=== PATIENT | female | born 1940 | race Caucasian/White ===

== ENCOUNTER 2017-11-27 08:23 | Observation (INO) ==
--- NOTE | 2017-11-21 16:26 | MH ---
cc: Bryson Wills MD DATE OF ADMISSION: 11/27/2017 DATE OF ADMISSION: 11/27/2017 ADMITTING DIAGNOSIS: Osteoarthritic degeneration, left knee. REASON FOR ADMISSION: Now being admitted for left total knee arthroplasty. HISTORY OF PRESENT ILLNESS: This is pleasant 77-year-old female is being admitted today for a left total knee arthroplasty due to severe painful osteoarthritic degeneration of the left knee. OTHER PAST HISTORY: The patient has a history of asthma, hypertension and arthritis and osteoporosis, for which she takes: MEDICATIONS: Alendronate 70, , gabapentin, Lasix, Levothyroxine, Mobic, omeprazole, telmisartan. PAST SURGICAL HISTORY: Rotator cuff repair. REVIEW OF SYSTEMS: Noncontributory. FAMILY HISTORY: Noncontributory. SOCIAL HISTORY: She does not smoke, does not drink. ALLERGIES: ALLERGIC TO SULFA ANTIBIOTICS. PHYSICAL EXAMINATION: GENERAL: We find a 77-year-old female, well-developed, well-nourished, well oriented x 3, complaining of pain in the left knee. VITAL SIGNS: Blood pressure 132/80, pulse 83 and regular, respirations 18, temperature 97.9, pulse oximetry 96 percent on room air. HEENT: Eyes PERRLA, EOMI. Ears, nose, mouth clear. NECK: Supple. LUNGS: Clear. HEART: Regular rate. ABDOMEN: Soft. Positive bowel sounds, nontender. EXTREMITIES: Reveal left knee had crepitance on range of motion from -5 short of full extension, 90 degrees of flexion. She is neurovascularly intact to her toes. IMPRESSION AT THIS TIME: Severe painful osteoarthritic degeneration, left knee. PLAN: Admission for left total knee arthroplasty today. The patient is given a prescription for postoperative pain and anticoagulation control in the office. MD HUSSEIN Canas/PAMELLA , 04:08 PM , 04:24 PM
[2017-11-27] MEDS ORDERED: Bupivacaine Liposomal PF 1.3% Inj 20 ML Vial ONE (09:12)
[2017-11-27] MEDS ORDERED: Dexamethasone Inj 20 MG/5 ML Vial IV.SIG SCH (09:30)
[2017-11-27] MEDS ORDERED: Metoprolol Tartrate 25 MG Tablet PO SCH (09:30)
[2017-11-27] MEDS ORDERED: ceFAZolin 2 GM Premix Inj 2 GM/50 ML PIGGYBACK IV.SIG SCH (09:30)
[2017-11-27] MEDS ORDERED: Vancomycin Inj 1 GM/200 ML PIGGYBACK IV.SIG SCH (09:30)
[2017-11-27] MEDS ORDERED: Chlorhexidine Gluconate 2% 1 Pack (2 Cloths) TOPICAL SCH (09:30)
[2017-11-27] MEDS ORDERED: Chlorhexidine 4% Topical 120 APPLIC/120 ML Bottle TOPICAL SCH (09:30)
[2017-11-27] MEDS ORDERED: Sodium Chlor 0.9% Inj 500 ML IV.SIG SCH (10:00)
[2017-11-27] MEDS ORDERED: Morphine Inj 4 MG/ML Vial IV.PUSH PRN (10:57)
[2017-11-27] MEDS ORDERED: Tranexamic Acid Inj 1,000 MG in Sodium Chlor 0.9% Inj 100 ML IV.SIG ONE (10:57)
[2017-11-27] MEDS ORDERED: Bisacodyl 10 MG Supp RECTAL PRN (10:57)
[2017-11-27] MEDS ORDERED: Post-op Orders (for Pharmacy) OTHER STA (10:57)
[2017-11-27] MEDS ORDERED: TRANEXAMIC ACID IV.SIG SCH ×2 (11:00→14:00)
[2017-11-27] MEDS ORDERED: SODIUM CHLOR 0.9% IV.SIG SCH ×2 (11:00→14:00)
[2017-11-27] MEDS ORDERED: Sodium Chlor 0.9% Inj 80 ML, Bupivacaine Liposo PF 1.3% Inj 20 ML, Bupivacaine PF 0.25%... P-ARTICULR SCH ×3 (11:00)
[2017-11-27] MEDS ORDERED: Bupivacaine/Dextrose 0.75% Inj 2 ML Ampul ONE (11:10)
--- NOTE | 2017-11-27 11:55 | P.DCO ---
- Physical Therapy Order: Evaluate and treat, Improve ambulation, Strength and gait training - Home Health Nursing Order: Nursing assessment with vital signs - Case Management Consult Yes - Certification I have seen patient May Fernandes on 11/27/17. My clinical findings support the need for the requested home health care services because: High risk of falls I certify that my clinical findings support that this patient is homebound because: Post-op weakness, Unsteady gait/balance
[2017-11-27] MEDS ORDERED: Esmolol Bolus Inj 100 MG/10 ML Vial IV.PUSH ONE (12:00)
[2017-11-27] MEDS ORDERED: Phenylephrine/NS 1000 MCG/10ML Syringe IV.PUSH ONE (12:00)
[2017-11-27] MEDS ORDERED: Neostigmine Inj 5 MG/5 ML Syringe IV.PUSH ONE (12:00)
[2017-11-27] MEDS ORDERED: Lidocaine PF 1% Inj 5 ML Syringe INFILTRATN ONE (12:00)
[2017-11-27] MEDS ORDERED: Glycopyrrolate Inj 1 MG/5 ML Syringe IV.PUSH ONE (12:00)
[2017-11-27] MEDS ORDERED: Ketorolac Inj 30 MG/ML (IVP) Vial IV.PUSH ONE (12:00)
[2017-11-27] MEDS ORDERED: Labetalol HCl Inj 100 MG/20 ML Vial IV.PUSH ONE (12:00)
--- NOTE | 2017-11-27 14:28 | MP ---
cc: Bryson Wills MD DATE OF OPERATION: 11/27/2017 DATE OF SURGERY: 11/27/2017. PREOPERATIVE DIAGNOSIS: Osteoarthritic degeneration, left knee. POSTOPERATIVE DIAGNOSIS: Osteoarthritic degeneration, left knee. PROCEDURE PERFORMED: Left total knee arthroplasty using Consensus components, size 3 femur, 1 tibia, 12 standard insert and size 1 patella, 2 batches of DePuy cement. SURGEON: Bryson Wills MD INTERNET SALES REPRESENTATIVE: MILAD Salamanca ANESTHESIA: General intubation and block. PROCEDURE: After successful induction of anesthesia, the patient is placed on the operating room table in the supine position. The knee is prepped and draped in the usual manner. A tourniquet is inflated at the upper thigh and set to 300 mmHg pressure after exsanguination of the lower extremity. A longitudinal incision is made extending from 3 inches proximal to the superior pole of the patella, across the patella in longitudinal fashion, and down past the insertion of the tibial tubercle into the proximal tibia. The incision is carried down through subcutaneous tissue along the medial aspect of the patella and retinaculum, down through the capsule to expose the knee joint. The patella and patellar tendon are freed up enough to allow the patella to be inverted and retracted off the lateral side of the knee joint. The knee joint is left exposed. Small osteophytes are removed. All soft tissue is removed to allow proper position of the femoral and tibial cutting jig guide. The first femoral jig is then inserted along the distal end of the femur after first measuring to decide whether this is a small, medium, or large component. The notch is then drilled and the tibial cutting guide inserted into the femoral cutting guide, along with the ankle brace to allow for proper measurement of the tibial cutting surface that needed to be resected. Pins are inserted into the tibial cutting jig and femoral cutting jig to hold them in place. An oscillating saw is then used to resect the surface of the tibia. The surface of the tibia is then completely removed using sharp and blunt dissection. The anterior and posterior cuts of the femur are then made as well using an oscillating saw through the cutting guide. All guides are then removed and the varus/valgus angulation cutting guide applied to the femur for proper measurement of the proper amount of valgus. The anterior cutting guide for the femur is then inserted at the anterior femoral cuts made. Next, the first block trial is inserted into the femur to allow for proper condyle drill holes to be made which are then made followed by removal of the bone between the condyles using an oscillating saw as well as the bone removed at the most posterior surface of the condyle. After this, this guide is removed and the chamfer cuts made using the chamfer cutting guide from both anterior and posterior. Next, the femoral trial is then inserted, the tibial surface reflected anterior to expose the tibial surface and a tibial stem guide is inserted after first measuring for a standard, standard plus, large, or large plus surface to be used. After the stem is impacted the trial tibial surface is applied followed by the trial meniscal components. After full range of motion is found with the appropriate length meniscal components varying the patella is prepared by resecting the posterior aspect of the patella using an oscillating saw, inserting a trial. The trial is then removed and the cruciate cutting guide applied using the bur to cut the cruciate cuts. After cruciate cuts are made all trials are removed. The wound is irrigated copiously with antibiotic solution and Water Pik and the actual components inserted into place using the aforementioned components, Consensus components, size 3 femur, 1 tibia, 12 standard insert and size 1 patella, 2 batches of DePuy cement. After the cement has hardened and the components are found to have full range of motion with no instability, the tourniquet is deflated, total tourniquet time being 52 minutes at 300 mmHg pressure. Meticulous hemostasis achieved and 120 cc of a mixture of Exparel, 0.25% Marcaine plain and normal saline injected around the knee for extra pain control. The wound again is irrigated copiously with antibiotic solution, meticulous hemostasis achieved. The deep fascia reapproximated with running #2 Quill, the subcutaneous tissue approximated using interrupted and running 2-0 and 4-0 Monocryl sutures, and Prineo dressing. DRAINS: No drain utilized. TOTAL TOURNIQUET TIME: 52 minutes at 300 mmHg pressure. ESTIMATED BLOOD LOSS: 200 mL COUNTS: Sponge count correct. CONDITION: The patient tolerated the procedure well and left the operating room in satisfactory condition. NOTE: MILAD Salamanca, was present during the entire procedure to include patient positioning and the procedure. The medical necessity of a nurse practitioner, miller first was indicated in this case due to the surgical complexity of the case itself. During the surgical case, the surgical scrub technologist was working the back table and my surgical orderly MILAD was directly assisting me. J. MD HUSSEIN Archibald/PAMELLA , 01:56 PM , 02:27 PM
[2017-11-27] MEDS ORDERED: fentaNYL Citrate Inj 100 MCG/2 ML Ampul ONE (14:44)
[2017-11-27] MEDS ORDERED: *Meperidine Inj 25 MG/ML Vial PERIprocedural Use ONLY ONE (15:04)
--- NOTE | 2017-11-27 15:12 | XR ---
EXAM DATE: 11/27/2017 3:00 PM EDT AGE/SEX: 77 years / Female INDICATIONS: Post op left knee surgery CLINICAL DATA: This is the patient's initial encounter. Patient reports that signs and symptoms have been present for 1 day and indicates a pain score of Nonresponsive. MEDICAL/SURGICAL HISTORY: None. None. COMPARISON: No prior exams available for comparison. FINDINGS: The patient is status post left total knee replacement with prosthesis in good position. No acute fra cture or dislocation is noted. CONCLUSION: There is post left total knee arthroplasty with prosthesis in good position. Electronically signed by: Esteban Cox MD 11/27/2017 3:11 PM EDT
[2017-11-27] MEDS ORDERED: Montelukast 10 MG Tablet PO SCH (18:00)
--- NOTE | 2017-11-27 18:10 | P.BOP ---
- Preoperative Diagnosis (1) Osteoarthritis of left knee - Postoperative Diagnosis (1) Osteoarthritis of left knee Date of procedure: 11/27/17 Procedure: Left Total Knee Arthroplasty Implants: see implant log Anesthesia: SHRUTHIA Surgeon: Bryson Wills MD Sprayer Machine: Daniella Camejo Estimated blood loss (mL): 200 Tourniquet time (min): 65 Urine output (mL): 0 (no aguilera) Pathology: none sent Condition: stable Disposition: same day
[2017-11-27] MEDS: Gabapentin 100 MG Capsule PO SCH (22:53)
[2017-11-27] MEDS: Senna/Docusate Sodium 8.6/50 MG Tablet PO SCH (22:53)
[2017-11-27] MEDS: Multivitamin/Minerals Therapeutic Tablet PO SCH (22:53)
[2017-11-28 05:58] LABS: Hematocrit 34.4 % (35.0-46.0); Hemoglobin 11.1 gm/dL (11.6-15.3)
[2017-11-28] MEDS ORDERED: KRILL OM DHA EPA PHOSPHO AST PO SCH (09:00)
[2017-11-28] MEDS ORDERED: [UNRECOGNIZED DRUG - OTHER] PO SCH (09:00)
[2017-11-28] MEDS ORDERED: MV MN FA VIT K LYCOP LUT COQ10 PO SCH (09:00)
[2017-11-28] MEDS ORDERED: POTASSIUM CHLORIDE PO SCH (09:00)
[2017-11-28] MEDS: Senna/Docusate Sodium 8.6/50 MG Tablet PO SCH ×2 (09:46→22:44)
[2017-11-28] MEDS: Pantoprazole Sodium 20 MG DR Tablet PO SCH (09:51)
[2017-11-28] MEDS: Multivitamin/Minerals Therapeutic Tablet PO SCH ×2 (09:52→22:44)
[2017-11-28] MEDS: Calcium Carbonate 500 MG Tablet PO SCH ×3 (09:52→18:19)
[2017-11-28] MEDS ORDERED: Magnesium Oxide 400 MG Tablet PO SCH (11:00)
--- NOTE | 2017-11-28 11:11 | P.PNOP ---
Subjective Interval history: Patient comfortable at present time. Physical Exam Vital signs: Vital Signs 11/27/17 14:31 11/27/17 14:44 11/27/17 15:00 Temperature 97.9 F 97.9 F Pulse Rate 48 L 62 62 Respiratory Rate 16 16 16 Blood Pressure 133/62 139/57 L 141/64 H Pulse Oximetry 99 11/27/17 15:15 11/27/17 15:30 11/27/17 17:30 Temperature Pulse Rate 62 59 L 60 Respiratory Rate 16 16 16 Blood Pressure 148/65 H 141/62 H 152/72 H Pulse Oximetry 99 99 99 11/27/17 18:30 11/27/17 19:15 11/27/17 20:00 Temperature 97.9 F 97.6 F Pulse Rate 55 L 55 L 64 Respiratory Rate 16 16 16 Blood Pressure 162/70 H 162/70 H 148/67 H Pulse Oximetry 98 11/27/17 20:20 11/28/17 00:00 11/28/17 04:00 Temperature 97.8 F 98 F Pulse Rate 74 84 Respiratory Rate 18 16 16 Blood Pressure 159/69 H 151/61 H Pulse Oximetry 96 94 L 11/28/17 08:00 Temperature 97.8 F Pulse Rate 73 Respiratory Rate 18 Blood Pressure 149/67 H Pulse Oximetry 97 Intake & Output 11/27/17 11/28/17 11/28/17 18:59 06:59 18:59 Intake Total 1256.33 / 1256.33 1680 / 1680 Output Total 200 / 200 550 / 550 Balance 1056.33 / 1056.33 1130 / 1130 Weight 63.3 kg 60.9 kg Intake: IV 356.33 / 356.33 1200 / 1200 LR 1000 mL Inj 1,000 ML @ 80 1000 / 1000 mls/hr IV.CONT .[id number] KARL Rx# :[id number] Cyklokapron Inj 633 MG In NS 106.33 / 106.33 Inj 100 ML @ 200 mls/hr IV.SIG ONCE KARL Rx#:[id number] Vancomycin Inj 1 gm In 200 ml @ 200 / 200 200 mls/hr IV.SIG DIRECTOR BIOSTATISTICS KARL Rx#:[id number] Ancef 2 GM Premix Inj 2 gm In 50 / 50 50 ml @ 100 mls/hr IV.SIG DIRECTOR BIOSTATISTICS KARL Rx#:[id number] Ancef Inj 1,000 MG In NS Inj 200 / 200 100 ML @ 200 mls/hr IV.SIG Q6H KARL Rx#:[id number] Oral 480 / 480 Anesthesia Amount 900 / 900 Output: Urine 550 / 550 Estimated Blood Loss 200 / 200 Other: # Voids 1 Date of Last Bowel Movement 11/26/17 # Bowel Movements 0 Weight On Admission 63.3 kg Results - Labs CBC & Chem 7: 11/28/17 05:21 Laboratory Results - last 24 hr 11/28/17 05:21 Hgb 11.1 L Hct 34.4 L - Imaging Impressions Knee X-Ray 11/27/17 10:57 CONCLUSION: There is post left total knee arthroplasty with prosthesis in good position. Assessment and Plan - Problem List (1) Status post total left knee replacement using cement Code(s): Z96.652 - Presence of left artificial knee joint Status: Acute - Attending Attestation Attending Attestation: Dressing dry and intact. Sitting up in chair. No calf tenderness. She is slightly confused. Plan is for the patient to continue with physical therapy today and assess her mental status tomorrow. She may need to go to shelter facility.
[2017-11-28] MEDS: Gabapentin 100 MG Capsule PO SCH (22:44)
[2017-11-29] MEDS: Senna/Docusate Sodium 8.6/50 MG Tablet PO SCH (09:03)
[2017-11-29] MEDS: Pantoprazole Sodium 20 MG DR Tablet PO SCH (09:03)
[2017-11-29] MEDS: Multivitamin/Minerals Therapeutic Tablet PO SCH (09:03)
[2017-11-29 09:47] LABS: Hematocrit 34.5 % (35.0-46.0); Hemoglobin 11.6 gm/dL (11.6-15.3)
[2017-11-29] MEDS: Calcium Carbonate 500 MG Tablet PO SCH ×2 (11:03→12:53)
[2017-11-29 11:09] LABS: Bilirubin,Urine Negative (Negative); Clarity,Urine Clear (Clear); Color,Urine Yellow (Yellw/Straw); Glucose,Urine (UA) Negative (Negative); Leukocyte Esterase,Urine Negative (Negative); Mucus,Urine Few /lpf (Occasional); Nitrite,Urine Negative (Negative); Specific Gravity,Urine 1.006 (1.002-1.035); Squamous Epithelial Cell,Urine <1 /hpf (0-5)
--- NOTE | 2017-11-29 12:12 | P.PNOP ---
Subjective Interval history: the patient is basically comfortable today. Physical Exam Vital signs: Vital Signs 11/28/17 16:00 11/28/17 20:00 11/29/17 00:00 Temperature 97.8 F 98 F 98.2 F Pulse Rate 73 88 74 Respiratory Rate 18 18 18 Blood Pressure 125/71 128/70 129/65 Pulse Oximetry 97 98 97 11/29/17 04:00 11/29/17 08:00 Temperature 99.1 F 98.0 F Pulse Rate 88 87 Respiratory Rate 18 18 Blood Pressure 167/68 H 151/67 H Pulse Oximetry 97 98 Intake & Output 11/28/17 11/29/17 11/29/17 18:59 06:59 18:59 Intake Total 2380 / 2380 360 / 360 Output Total 300 / 300 Balance 2080 / 2080 360 / 360 Weight 75.6 kg Intake: IV 1000 / 1000 LR 1000 mL Inj 1,000 ML @ 80 1000 / 1000 mls/hr IV.CONT .[id number] KARL Rx# :[id number] Oral 480 / 480 360 / 360 Anesthesia Amount 900 / 900 Output: Urine 300 / 300 Other: # Voids 1 3 Date of Last Bowel Movement 11/26/17 11/26/17 # Bowel Movements 0 - Constitutional no acute distress Results - Labs CBC & Chem 7: 11/29/17 08:59 Laboratory Results - last 24 hr 11/28/17 11/29/17 08:40 08:59 Hgb 11.6 Hct 34.5 L Urine Color Yellow Urine Clarity Clear Urine pH 6.0 Ur Specific [place] 1.006 Urine Protein Negative Urine Glucose (UA) Negative Urine Ketones Trace H Urine Occult Blood Moderate H Urine Nitrate Negative Urine Bilirubin Negative Urine Urobilinogen Less than 2 Ur Leukocyte Esterase Negative Urine RBC 6 H Urine WBC 1 Ur Squamous Epith Cells <1 Urine Mucus Few H Micro UA Comment Culture not ind Urine Culture Comments Culture not ind Assessment and Plan - Problem List (1) Status post total left knee replacement using cement Code(s): Z96.652 - Presence of left artificial knee joint Status: Acute - Attending Attestation Attending Attestation: the left knee wound is healing well no sign of inflammation or infection. She has no calf tenderness. She is neurovascularly intact her toes. Plan is for the patient to continue therapy today and when bed becomes available she will be transferred to the halfway facility. For continuation of care.
[2017-11-29 13:30] VITALS: BP 134/58; PULSE 95; RESP 17; TEMP 98.4; O2SAT 96
--- NOTE | 2017-11-30 10:38 | P.DS ---
Date of admission: 11/27/17 10:57 Primary care physician: MD Bryson Rios MD Attending physician on discharge: Tanmay Wills Anticipated date of discharge: 11/29/17 Brief History from admission: Patient underwent a left total knee arthroplasty on day of admission. She received a course of prophylactic IV antibiotics and within 23 hours started on anticoagulation therapy. She continued to improve tolerating food and fluids well. She tolerated physical therapy and was discharged to care home facility on postoperative day 3 in good condition for continuation of care. DS: Diagnosis - Discharge Diagnosis (1) Status post total left knee replacement using cement Status: Acute DS: Medications - Discharge Medications Prescriptions: hydrocodone-acetaminophen 1 tab PO Q4H PRN 15 Days #60 tab PRN Reason: Pain, Moderate DS: Summary Hospital Course: Patient was in the hospital total of 3 days. - Time Spent with Patient Total time spent providing and/or coordinating discharge services: - Quality: AMI Clinical Trial Participant: No - Quality: Stroke Reason for No Anticoagulant at DC: Treatment not indicated - Quality: VTE Deep Vein Thrombosis/Pulmonary Embolism Present on Admission: No Exam Vital signs: Vital Signs 11/29/17 12:00 Temperature 98.4 F Pulse Rate 95 H Respiratory Rate 17 Blood Pressure 134/58 L Pulse Oximetry 96 Results Procedures completed during hospitalization: Left total knee Completed studies during hospitalization: Labs and x-ray Labs on day of discharge: Labs from last 24 hours 11/28/17 08:40 Urine Color Yellow Urine Clarity Clear Urine pH 6.0 Ur Specific [place] 1.006 Urine Protein Negative Urine Glucose (UA) Negative Urine Ketones Trace H Urine Occult Blood Moderate H Urine Nitrate Negative Urine Bilirubin Negative Urine Urobilinogen Less than 2 Ur Leukocyte Esterase Negative Urine RBC 6 H Urine WBC 1 Ur Squamous Epith Cells <1 Urine Mucus Few H Micro UA Comment Culture not ind Urine Culture Comments Culture not ind - Impressions ITS Impressions Knee X-Ray 11/27/17 10:57 CONCLUSION: There is post left total knee arthroplasty with prosthesis in good position. Discharge Plan - Discharge Disposition Patient Disposition: 03 Discharge to SNF - Discharge Condition Condition: Good - Discharge Order Discharge Orders: Discharge Order (Routine); Ordered 11/29/17 Ordered By: Tanmay Wills - Physicians Team Primary Care Provider: Twan Cooper Attending Provider: Tanmay Wills Other Providers: [facility]ency - Rxs /Orders / Referrals /Forms Prescriptions: New hydrocodone-acetaminophen 7.5-325 mg Tablet 1 tab PO Q4H PRN (Reason: Pain, Moderate) 15 Days Qty: 60 RF: 0 Continue calcium carbonate [Calcium 600] 600 mg calcium (1,500 mg) Tablet 1,200 mg PO DAILY cholecalciferol (vitamin D3) [Vitamin D3] 1,000 unit Capsule 1,000 unit PO DAILY gabapentin 100 mg Capsule 100 mg PO HS [id number] [krill oil] [id number] mg Capsule 1 cap PO DAILY magnesium oxide 500 mg Capsule 500 mg PO DAILY montelukast 10 mg Tablet 10 mg PO QPM [id number] [Daily Multivitamin] 200-100-500 mcg Capsule 1 cap PO DAILY omeprazole 20 mg Tablet,Delayed Release (Dr/Ec) 20 mg PO DAILY potassium 99 mg Tablet 99 mg PO DAILY telmisartan 40 mg Tablet 40 mg PO DAILY Discontinued meloxicam 7.5 mg Tablet 7.5 mg PO DAILY Ambulatory Orders / Order Sets / DME: Adjustable Commode 3-in-1 (1 each) (Routine) Location: Determined by Patient Ordered By: Tanmay Wills CPM - Continuous Passive Motion Machine (1 each) (Routine) Location: Determined by Patient Ordered By: Tanmay Wills Walker With Front Wheels (1 each) (Routine) Location: Determined by Patient Ordered By: Tanmay Wills Referrals: Twan Cooper MD [Primary Care Provider] - See Instructions - Discharge Instructions Patient Printed Instructions: How to Use an Incentive Spirometer (ED), How to Choose and Use a Walker (GEN), Narcotic Pain Management (DC), Precautions after Total Joint Replacement Surgery (ED), Knee Replacement (DC) Additional Instructions: Make or keep your follow up appointments as directed by your provider. Take medications as directed. Do not change dressing, leave surgical dressing clean and dry. - Post Discharge Care Plan Care Plan Goals: Discharge Care Plan Goals for Total Knee Replacement You have undergone knee replacement surgery. Your doctor replaced your painful joint with an artificial joint to relieve pain and restore movement. Here are some goals to help you heal well. Directions to Meet your Goals: 1. Activity & Exercises: * Take pain medicine as directed by your doctor. * Sit in chairs with arms. The arms make it easier for you to stand up or sit down. * Dont sit for more than 30 to 45 minutes at one time. * Nap if you are tired, but dont stay in bed all day. * Sleep with a pillow under your ankle, not your knee. Be sure to change the position of your leg during the night. * Wear the support stockings you were given in the hospital as directed by your surgeon. 2. Prevent Falls/Injury: The hsu to successful recovery is movement with walking and exercising your knee as directed by your doctor. * Arrange your household to keep the items you need handy. Keep everything else out of the way. * Remove items that may cause you to fall, such as throw rugs and electrical cords. * Use nonslip bath mats, grab bars, an elevated toilet seat, and a shower chair in your bathroom * Sit on a shower stool or chair when you shower to keep from falling. * Until your balance, flexibility, and strength improve, use a cane, crutches, a walker, handrails, or someone to help you. * Keep your hands free by using a backpack, kalpana pack, apron, or pockets to carry things * Walk up and down stairs with support. Try one step at a time. Use the railing if possible. * Dont drive until your doctor says its OK. * Dont drive while you are taking opioid pain medicine. 3. Precautions: * Prevent infection. Any infection will need to be treated immediately. Call your doctor right away if you think you might have an infection. * Tell your dentist that you have an artificial joint and take antibiotics as prescribed before any dental work. * Tell all your healthcare providers about your artificial joint before any medical procedure. * Maintain a healthy weight. Get help to lose any extra pounds. Added body weight puts stress on the knee. * Your medications may include blood-thinning medicine to prevent blood clots or antibiotics to prevent infection-prevent any falls or cuts 4. Incision Care: * Prevent infection by washing your hands often. If an infection occurs, it will need to be treated right away. * Call your doctor right away if you think you may have an infection. Symptoms include a fever or an incision that leaks white, green, or yellow fluid. * Don't soak your incision in water until your doctor says its OK. This means no hot tubs, bathtubs, or swimming pools. * Follow your doctor's instructions for changing the dressing. * Dont rub the incision, or apply creams or lotions to it. * If you notice any redness or drainage around the bandage site, contact your surgeon's office immediately. 5. Follow-Up: Do Not miss your follow-up appointment. Keep up with all your appointments and yearly check ups When to call your doctor: Call your doctor right away if you have: Fever of 100.4F (38C) or higher, or as directed by your doctor Shaking chills Stiffness, or inability to move the knee Increased swelling in your leg Increased redness, tenderness, or swelling in or around the knee incision Drainage from the knee incision Increased knee pain Call 911: Call 911 right away if you have: Chest pain Shortness of breath Any pain or tenderness in your calf
== END 2017-11-29 15:58 ==
LOC: HSDI 08:23 → N06 08:23 → HSDC 08:23 → N06 19:27
PROVIDERS: ADMIT Surgery; ATTEND Surgery

== ENCOUNTER 2017-12-04 19:26 | Observation (INO) ==
[2017-12-04 20:49] LABS: Baso # (Auto) 0.1 th/mm3 (0.0-0.2); Baso % (Auto) 0.9 % (0.0-2.0); Eos # (Auto) 0.4 th/mm3 (0.0-0.4); Eos % (Auto) 5.1 % (0.0-4.0); Hematocrit 31.5 % (35.0-46.0); Hemoglobin 10.5 gm/dL (11.6-15.3); Lymph # (Auto) 1.5 th/mm3 (1.0-4.8); Lymph % (Auto) 18.4 % (9.0-44.0); Mean Corpuscular HGB Conc 33.2 % (32.0-36.0); Mean Corpuscular Volume 87.1 fL (80.0-100.0); Mean Platelet Volume 8.8 fL (7.0-11.0); Mono % (Auto) 11.8 % (0.0-8.0); Neut # (Auto) 5.3 th/mm3 (1.8-7.7); Neut % (Auto) 63.8 % (16.0-70.0); Platelet Count 519 th/mm3 (150-450); Red Blood Count 3.62 mil/mm3 (4.00-5.30); Red Cell Distribution Width 13.8 % (11.6-17.2); White Blood Count 8.4 th/mm3 (4.0-11.0)
[2017-12-04 21:00] LABS: Activated Partial Thrombo Time 30.1 sec (24.3-30.1); Prothrombin Time 10.1 sec (9.8-11.6)
[2017-12-04] MEDS ORDERED: Famotidine PF Inj 20 MG/2 ML Vial IV.PUSH ONE (21:01)
[2017-12-04 21:30] LABS: Total Protein 7.3 g/dL (6.4-8.2)
[2017-12-04 21:39] LABS: Anion Gap 7 meq/L (5-15); Blood Urea Nitrogen 15 mg/dL (7-18); Calcium 8.8 mg/dL (8.5-10.1); Carbon Dioxide 27.3 meq/L (21.0-32.0); Chloride 101 meq/L (98-107); Glomerular Filtration Rate 58 mL/min (>89); Glucose,Random 145 mg/dL (74-106); Potassium 4.4 meq/L (3.5-5.1); Sodium 135 meq/L (136-145)
[2017-12-04 21:41] LABS: Albumin 2.9 g/dL (3.4-5.0)
--- NOTE | 2017-12-04 22:06 | XR ---
EXAM DATE: 12/04/2017 8:25 PM EDT AGE/SEX: 77 years / Female INDICATIONS: Lower chest upper abdomen pain. CLINICAL DATA: This is the patient's initial encounter. Patient reports that signs and symptoms have been present for 1 day and indicates a pain score of 6/10. MEDICAL/SURGICAL HISTORY: Hypertension. Asthma. Total knee replacement, left. COMPARISON: No prior exams available for comparison. FINDINGS: Small hiatal hernia. Basilar density probably atelectasis. No effusion or pneumothorax. Heart size mi ldly enlarged. Rotator cuff disease bilaterally. CONCLUSION: Small to moderate hiatal hernia. Probable basilar atelectasis. Electronically signed by: Constantine Ruiz MD 12/04/2017 10:04 PM EDT
--- NOTE | 2017-12-04 22:10 | ED ---
HPI General Chief Complaint: Chest Pain Stated Complaint: ABD Pain Time Seen by Provider: 12/04/17 20:12 Source: patient and family Limitations: no limitations History of Present Illness HPI narrative: Patient is in a snf [facility] rehab the surgery she had 10 days ago. Tonight she was eating sorbet suddenly felt something very strange in her chest was a cold feeling but then it lasted for over 20 minutes the says became concerning to them because it lasted so long. She has no cardiac known history she had no shortness of breath she does not have any shortness of breath now she does not have any chest pain at this time she has never had a stress test as far as she or the remembers. And EKG is normal sinus rhythm first troponin is negative and patient is pain-free at this time her knee incision does not look infected for the normal 10 days out healing of her left knee she is given 2 baby aspirin and Pepcid IV for GERD and prophylaxis against coagulation and admitted to the chest pain center serial troponins serial EKG possible stress test in the a.m. complaint: chest pain Complete Quality Measures for STEMI Alert Patients Onset (ago): hour(s) Duration: now resolved Onset: after eating Pain location: substernal Severity: moderate Quality: other (Coldness) Pain radiation: none Relieving factors: nothing Exacerbating factors: eating Context: recent surgery and recent immobilization Related Data Home Medications Medication Instructions Recorded Confirmed calcium carbonate [Calcium 600] 1,200 mg PO DAILY 11/20/17 12/05/17 cholecalciferol (vitamin D3) 1,000 unit PO DAILY 11/20/17 12/05/17 [Vitamin D3] gabapentin 100 mg PO HS 11/20/17 12/05/17 [id number] 1 cap PO DAILY 11/20/17 12/05/17 [krill oil] magnesium oxide 500 mg PO DAILY 11/20/17 12/05/17 montelukast 10 mg PO QPM 11/20/17 12/05/17 [id number]-vit [id number] 1 cap PO DAILY 11/20/17 12/05/17 [Daily Multivitamin] omeprazole 20 mg PO DAILY 11/20/17 12/05/17 potassium 99 mg PO DAILY 11/20/17 12/05/17 telmisartan 40 mg PO DAILY 11/20/17 12/05/17 Previous Rx's Medication Instructions Recorded hydrocodone-acetaminophen 1 tab PO Q4H PRN 15 Days #60 tab 11/29/17 Allergies Allergy/AdvReac Type Severity Reaction Status Date / Time Sulfa (Sulfonamide Allergy Migraine Verified 11/27/17 09:07 Antibiotics) Review of Systems Except as stated in HPI: all other systems reviewed are negative [facility] Social History Social History Second Hand Smoke Exposure: No Smoking Status: Never smoker How Often Do You Have a Drink Containing Alcohol: Monthly or less Exam Narrative Exam Narrative: GENERAL: awake alert seems to confabulate her recounting of ROS and HPI of her Chest pain that occurred earlier SKIN: Warm and dry. HEAD: Atraumatic. Normocephalic. EYES: Pupils equal and round. No scleral icterus. No injection or drainage. ENT: No nasal bleeding or discharge. Mucous membranes pink and moist. NECK: Trachea midline. No JVD. CARDIOVASCULAR: Regular rate and rhythm. RESPIRATORY: No accessory muscle use. Clear to auscultation. Breath sounds equal bilaterally. GASTROINTESTINAL: Abdomen soft, non-tender, nondistended. Hepatic and splenic margins not palpable. MUSCULOSKELETAL: Extremities left Knee is swollen with midline incision healing well post operative swelling noted NEUROLOGICAL: Awake and alert. No obvious cranial nerve deficits. Motor grossly within normal limits. Five out of 5 muscle strength in the arms and legs. Normal speech. PSYCHIATRIC: Appropriate mood and affect; insight and judgment normal. Course Reevaluation(s) Reevaluation #1: pt became confused and needed to be given Haldol to help her sleep as she tried to jump out of stretcher onto her new knee 10 day post op , haldol 2 mg IVP and she fell asleep for night . [facility] and [facility] pending Initial Documented Vital Signs Temperature 98.2 F 12/04/17 20:50 Pulse Rate 76 12/04/17 20:50 Respiratory Rate 14 12/04/17 20:50 Blood Pressure 194/82 H 12/04/17 20:50 Last Documented Vital Signs Temperature 98.4 F 12/04/17 21:00 Pulse Rate 88 12/05/17 10:39 Respiratory Rate 18 12/05/17 10:39 Blood Pressure 141/87 H 12/05/17 10:39 Medical Decision Making MDM Narrative Medical decision making narrative: I reviewed EKG and Labs trop negative I admitted her to [facility] for serial troponin and EKG possible stress, Her left and over next few hours while still in ED pt became very disoriented and needed to be constantly redirected to stay in her , She tried to jump out of bed and seemed completely unaware of her recent knee replacement surgery and injury she would cause if she jumped out onto her legs, She eventually needed medication Haldol 2 mg to help her remain asllep , After 3rd trop was negative I felt it would serve her better to return to [place] where she would be watched after and could come and she would be less disoriented back at [place] then holding in ER for [facility] , D/c back to [facility] Differential Diagnosis Differential Diagnosis: GERD vs ischemic Chest pain vs PE vs gasrtritis vs GB disease Lab Data Result diagrams: 12/04/17 20:10 12/04/17 20:10 Lab Results 12/04/17 12/04/17 12/04/17 Range/Units 20:10 20:10 20:10 WBC 8.4 (4.0-11.0) th/mm3 RBC 3.62 L (4.00-5.30) mil/mm3 Hgb 10.5 L (11.6-15.3) gm/dL Hct 31.5 L (35.0-46.0) % MCV 87.1 (80.0-100.0) fL MCH 29.0 (27.0-34.0) pg MCHC 33.2 (32.0-36.0) % RDW 13.8 (11.6-17.2) % Plt Count 519 H D (150-450) th/mm3 MPV 8.8 (7.0-11.0) fL Neut % (Auto) 63.8 (16.0-70.0) % Lymph % (Auto) 18.4 (9.0-44.0) % [place] % (Auto) 11.8 H (0.0-8.0) % Eos % (Auto) 5.1 H (0.0-4.0) % Baso % (Auto) 0.9 (0.0-2.0) % Neut # (Auto) 5.3 (1.8-7.7) th/mm3 Lymph # (Auto) 1.5 (1.0-4.8) th/mm3 [place] # (Auto) 1.0 H (0.0-0.9) th/mm3 Eos # (Auto) 0.4 (0.0-0.4) th/mm3 Baso # (Auto) 0.1 (0.0-0.2) th/mm3 WBC Differential . Differential Comment Auto diff final PT 10.1 (9.8-11.6) sec INR 1.0 Ratio APTT 30.1 (24.3-30.1) sec Sodium 135 L (136-145) meq/L Potassium 4.4 (3.5-5.1) meq/L Chloride 101 (98-107) meq/L Carbon Dioxide 27.3 (21.0-32.0) meq/L Anion Gap 7 (5-15) meq/L BUN 15 (7-18) mg/dL Creatinine 0.94 (0.50-1.00) mg/dL Estimated GFR 58 L (>89) mL/min Random Glucose 145 H (74-106) mg/dL Calcium 8.8 (8.5-10.1) mg/dL Total Bilirubin (0.2-1.0) mg/dL Direct Bilirubin (0.0-0.2) mg/dL Indirect Bilirubin (0.0-0.8) mg/dL AST (15-37) U/L ALT (10-53) U/L Alkaline Phosphatase (45-117) U/L Total Creatine Kinase (26-192) U/L Troponin I Less than 0.02 L (0.02-0.05) ng/mL Total Protein (6.4-8.2) g/dL Albumin (3.4-5.0) g/dL 12/04/17 12/04/17 12/05/17 Range/Units 20:10 23:30 03:30 WBC (4.0-11.0) th/mm3 RBC (4.00-5.30) mil/mm3 Hgb (11.6-15.3) gm/dL Hct (35.0-46.0) % MCV (80.0-100.0) fL MCH (27.0-34.0) pg MCHC (32.0-36.0) % RDW (11.6-17.2) % Plt Count (150-450) th/mm3 MPV (7.0-11.0) fL Neut % (Auto) (16.0-70.0) % Lymph % (Auto) (9.0-44.0) % [place] % (Auto) (0.0-8.0) % Eos % (Auto) (0.0-4.0) % Baso % (Auto) (0.0-2.0) % Neut # (Auto) (1.8-7.7) th/mm3 Lymph # (Auto) (1.0-4.8) th/mm3 [place] # (Auto) (0.0-0.9) th/mm3 Eos # (Auto) (0.0-0.4) th/mm3 Baso # (Auto) (0.0-0.2) th/mm3 WBC Differential Differential Comment PT (9.8-11.6) sec INR Ratio APTT (24.3-30.1) sec Sodium (136-145) meq/L Potassium (3.5-5.1) meq/L Chloride (98-107) meq/L Carbon Dioxide (21.0-32.0) meq/L Anion Gap (5-15) meq/L BUN (7-18) mg/dL Creatinine (0.50-1.00) mg/dL Estimated GFR (>89) mL/min Random Glucose (74-106) mg/dL Calcium (8.5-10.1) mg/dL Total Bilirubin 0.3 (0.2-1.0) mg/dL Direct Bilirubin 0.1 (0.0-0.2) mg/dL Indirect Bilirubin 0.2 (0.0-0.8) mg/dL AST 24 (15-37) U/L ALT 29 (10-53) U/L Alkaline Phosphatase 181 H (45-117) U/L Total Creatine Kinase 84 68 (26-192) U/L Troponin I Less than 0.02 L Less than 0.02 L (0.02-0.05) ng/mL Total Protein 7.3 (6.4-8.2) g/dL Albumin 2.9 L (3.4-5.0) g/dL Imaging Data Radiologist's impression: Chest X-Ray 12/04/17 20:13 CONCLUSION: Small to moderate hiatal hernia. Probable basilar atelectasis. Discharge Plan Discharge Disposition Patient Disposition: 03 Discharge to SNF Discharge Condition Condition: Stable Discharge Order Discharge Orders: Discharge Order (Routine); Ordered 12/05/17 Ordered By: Lorenzo Sandhu Discharge Details Diagnosis: Atypical chest pain Physicians Team ED Provider: Lorenzo Sandhu Primary Care Provider: UNKNOWN, Attending Provider: Hever Romo Status ED Status: Left Department Discharge Information Discharge Date/Time: 12/05/17 11:16
[2017-12-05 00:57] LABS: Creatine Kinase 84 U/L (26-192)
[2017-12-05 01:05] VITALS: TEMP 98.4
[2017-12-05] MEDS ORDERED: Haloperidol Inj 5 MG/ML Ampul IV.PUSH ONE ×2 (02:26→03:08)
[2017-12-05 04:29] LABS: Creatine Kinase 68 U/L (26-192)
[2017-12-05 10:40] VITALS: BP 141/87; PULSE 88; RESP 18
--- NOTE | 2017-12-05 16:48 | ECG ---
Date Performed: 12/05/2017 Time Performed: 03:46:14 PTAGE: 77 years EKG: Sinus rhythm WITH MARKED SINUS ARRHYTHMIA MINIMAL VOLTAGE CRITERIA FOR LVH, CONSIDER NORMAL VARIANT BORDERLINE EC G Since PREVIOUS TRACING , no significant change noted DOCTOR: Tita Blair Interpretating Date/Time 12/05/2017 16:46:27
--- NOTE | 2017-12-05 16:49 | ECG ---
Date Performed: 12/05/2017 Time Performed: 00:05:29 PTAGE: 77 years EKG: Sinus rhythm WITH SINUS ARRHYTHMIA NORMAL ECG Since PREVIOUS TRACING , no significant change noted PREVIOUS TRACIN12/04/2017 19.49 DOCTOR: Tita Blair Interpretating Date/Time 12/05/2017 16:47:57
--- NOTE | 2017-12-05 16:50 | ECG ---
Date Performed: 12/04/2017 Time Performed: 19:49:23 PTAGE: 77 years EKG: Sinus rhythm WITH OCCASIONAL SUPRAVENTRICULAR PREMATURE COMPLEXES MODERATE VOLTAGE CRITERIA FOR LVH, CONSIDER NOR MAL VARIANT Since PREVIOUS TRACING , no significant change noted DOCTOR: Tita Blair Interpretating Date/Time 12/05/2017 16:49:22
== END 2017-12-05 11:17 ==
LOC: NEDH 19:26 → NEDA 19:26 → NEPC 19:26 → NEDH 12-05 02:31
PROVIDERS: ADMIT Internal Medicine Interventional Cardiology; ATTEND Internal Medicine Interventional Cardiology